=== PATIENT | female | born 1960 | race Caucasian/White ===

== ENCOUNTER 2017-02-18 18:58 | Emergency (ER) | payer MEDICAID ==
[~2017-02-18] VITALS: Ht 170.2 cm; Wt 81.8 kg
[~2017-02-18 18:58] MED LIST: ALBU8HFA4 IH; ASPI81TA33 PO; ATOR10TA84 PO; BENZ2TAB58 PO; CHOL400C8 PO; HALO5 PO; LISI-662 PO; METF500T4 PO; OLAN10TA6 PO; PANT40TA25 PO; SITA100 PO
[2017-02-18] MEDS ORDERED: MIDAZOLAM HCL 2 MG/2 ML VIAL IVP ONE (19:00)
[2017-02-18] MEDS ORDERED: PROPOFOL 1% 20 ML VIAL IVP ONE (19:00)
[2017-02-18] MEDS ORDERED: GLIP10 PO (19:03)
[2017-02-18] MEDS ORDERED: HYDR25TA PO (19:03)
[2017-02-18] MEDS ORDERED: PIOG45TA4 PO (19:03)
[2017-02-18] MEDS ORDERED: ATEN50TA PO (19:03)
[2017-02-18] MEDS ORDERED: LORA10TA7 PO (19:03)
[2017-02-18 19:07] LABS: GLUCOSE,POINT OF CARE 134 MG/DL (70-110)
[2017-02-18] MEDS ORDERED: VITAD1000 PO (19:08)
[2017-02-18] MEDS ORDERED: OLAN5TAB40 PO (19:08)
[2017-02-18] MEDS ORDERED: ONDANSETRON HCL 4 MG/2 ML VIAL IVP ONE (19:45)
[2017-02-18 22:42] LABS: BASOPHILS % (AUTO) 0.3 % (0.0-2.0); EOSINOPHILS % (AUTO) 0.4 % (1.0-6.0); HEMATOCRIT 30.4 % (36-46); HEMOGLOBIN 10.3 g/dL (12.0-16.0); LYMPHOCYTES # (AUTO) 1.3 K/uL (1.0-4.8); LYMPHOCYTES % (AUTO) 12.4 % (22.0-44.0); MEAN CORPUSCULAR HGB CONC 33.8 G/dL (31.0-37.0); MEAN CORPUSCULAR VOLUME 83 fL (80-100); MONOCYTES # (AUTO) 0.4 K/uL (0.1-1.0); MONOCYTES % (AUTO) 4.1 % (2.0-9.0); NEUTROPHILS # (AUTO) 8.6 K/uL (1.8-7.7); NEUTROPHILS % (AUTO) 82.8 % (40.0-70.0); PLATELET COUNT (AUTO) 278 K/uL (150-450); RED BLOOD CELL COUNT(AUTO) 3.68 MIL/uL (4.00-5.20); RED CELL DISTRIBUTION WIDTH 14.7 % (11.5-14.5); WHITE BLOOD COUNT (AUTO) 10.4 K/uL (4.5-11.0)
[2017-02-18 22:53] LABS: ANION GAP 7 mmol/L (8-16); CALCIUM, TOTAL 8.7 mg/dL (8.8-10.5); CARBON DIOXIDE 29 mmol/L (22-29); CHLORIDE 103 mmol/L (98-107); CREATININE 0.91 mg/dL (0.60-1.30); GLOMERULAR FILTR. RATE CALC > 60 mL/min (>60); POTASSIUM 3.2 mmol/L (3.5-5.1); SODIUM SERUM 139 mmol/L (136-145); UREA NITROGEN, BLOOD 16 mg/dL (7-18)
[2017-02-18 22:55] LABS: INR 1.1 (0.9-1.1); PROTHROMBIN TIME 11.4 SEC (9.4-11.6)
[2017-02-18 22:58] LABS: ALANINE AMINOTRANSFERASE 28 U/L (12-78); ALBUMIN 3.4 g/dL (3.4-5.0); ASPARTATE AMINOTRANSFERASE 22 U/L (15-37); BILIRUBIN,TOTAL 0.3 mg/dL (0.1-1.0); TOTAL PROTEIN, SERUM 6.5 g/dL (6.4-8.2)
[2017-02-18] MEDS ORDERED: VECURONIUM BROMIDE 10 MG/VIAL IVP ONE (23:00)
[2017-02-18] MEDS: PROPOFOL 1000 MG/ISO-OSM 100 ML IV PRN (23:14)
[2017-02-19] MEDS ORDERED: FentaNYL CITRATE-PF 100 MCG/2 ML VIAL IVP ONE (02:30)
[2017-02-19] MEDS: PROPOFOL 1000 MG/ISO-OSM 100 ML IV PRN (04:13)
[2017-02-19] MEDS ORDERED: IOVERSOL 350 MG/ML 100 ML VIAL ONE (05:15)
[2017-02-19] MEDS ORDERED: PROPOFOL 1000 MG/ISO-OSM 100 ML IV ONE (08:20)
[2017-02-19 09:50] VITALS: BP 148/74
== END 2017-02-19 10:19 | disposition short-term general hospital (02) ==
LOC: EMS 18:59
DX: T18.128A Food in esophagus causing other injury, initial encounter (principal); E11.9 Type 2 diabetes mellitus without complications; E78.00 Pure hypercholesterolemia, unspecified; I10 Essential (primary) hypertension; X58.XXXA Exposure to other specified factors, initial encounter; Y93.89 Activity, other specified; Y92.89 Other specified places as the place of occurrence of the external cause; Y99.8 Other external cause status
CPT/HCPCS: 31500; 36415; 43215; 71010; 71260; 80053; 82962; 85025; 85610; 85730; 93005; 96374; 96375; 99291; 99292; J2250; J2405; J2704 ×3; J3010; J3490; Q9967; Z7508; Z7610; 94002

== ENCOUNTER 2021-04-05 18:02 | Emergency (ER) | payer MEDICAID ==
[~2021-04-05] VITALS: Ht 162.6 cm; Wt 72.7 kg
[~2021-04-05 18:02] MED LIST changes: -ALBU8HFA4 IH; -ASPI81TA33 PO; +ASPI81TA87 PO; +ATEN-188 PO; +ATEN-72 PO; +CHOL100018 PO; -CHOL400C8 PO; +DIVA-80 PO; +GLIP10 PO; -HALO5 PO; +HYDR25TA2 PO; -LISI-662 PO; +LISI-894 PO; +LORA10TA7 PO; +METF-445 PO; -METF500T4 PO; +MULT-660 PO; +OLAN10TA22 PO; -OLAN10TA6 PO; +PANT-31 PO; -PANT40TA25 PO; -SITA100 PO
[2021-04-06 00:30] VITALS: BP 160/68
== END 2021-04-06 01:00 | disposition home or self-care (01) ==
LOC: EMS 18:03
DX: R06.02 Shortness of breath (principal); I10 Essential (primary) hypertension; E11.9 Type 2 diabetes mellitus without complications; E78.00 Pure hypercholesterolemia, unspecified; Z79.82 Long term (current) use of aspirin; Z79.84 Long term (current) use of oral hypoglycemic drugs; Z79.899 Other long term (current) drug therapy; Z20.822 Contact with and (suspected) exposure to COVID-19
CPT/HCPCS: 71045; 99284; U0003